=== PATIENT | male | born 1965 | race Caucasian/White ===

== ENCOUNTER 2020-09-09 09:11 | Emergency (ER) | payer OTHER ==
[~2020-09-09 09:11] MED LIST: ASPIR 8181 MG PO; COQ-10100 MG PO; COREG 3.125M3.125 MG PO; FLONASE 0.05% N16 GM; IMDUR ER TAB 3030 MG PO; KRILL OIL 3001 EACH PO; LASIX20 MG PO; LIPITOR TAB 2020 MG PO; PERCOCET 5-3251 EACH PO; PLAVIX 75 MG TA75 MG PO; PRAVACHOL80 MG PO; PROTONIX 40 MG40 M1 PO; RANEXA500 MG PO; VASOTEC 5 MG TAB5 MG PO
[2020-09-09] MEDS ORDERED: PERCOCET 5-3251 EACH PO ×2 (10:34→12:12)
== END 2020-09-09 13:12 | disposition home or self-care (01) ==
LOC: ER1 09:11
DX: S92.152A Displaced avulsion fracture (chip fracture) of left talus, initial encounter for closed fracture (principal); S52.501A Unspecified fracture of the lower end of right radius, initial encounter for closed fracture; W01.0XXA Fall on same level from slipping, tripping and stumbling without subsequent striking against object, initial encounter; Y92.009 Unspecified place in unspecified non-institutional (private) residence as the place of occurrence of the external cause
CPT/HCPCS: 29125; 73130; 73562; 73610; 73630; 99283